=== PATIENT | female | born 1955 | race Caucasian/White ===

== ENCOUNTER 2022-04-24 12:21 | Outpatient (CLI) | payer MEDICARE, SELFPAY | END 2022-04-24 12:22 | disposition home or self-care (01) | LOC: NFLDUCREF 04-28 14:24 | PROVIDERS: Visit Provider Nurse Practitioner Family | DX: R30.0 Dysuria (principal); R35.0 Frequency of micturition | CPT/HCPCS: 87086; 87186 ==

== ENCOUNTER 2024-09-05 12:21 | Outpatient (CLI) | payer MEDICARE, SELFPAY | END 2024-09-05 12:22 | disposition home or self-care (01) | PROVIDERS: PCP Family Medicine; Referring Provider Family Medicine; Visit Provider Nurse Practitioner Family | DX: N30.00 Acute cystitis without hematuria (principal); B96.20 Unspecified Escherichia coli [E. coli] as the cause of diseases classified elsewhere | CPT/HCPCS: 87086 ==

== ENCOUNTER 2024-10-30 12:26 | Outpatient (CLI) | payer MEDICARE, SELFPAY | END 2024-10-30 12:27 | disposition home or self-care (01) | LOC: NFLDREF 11-02 07:59 | PROVIDERS: PCP Family Medicine; Referring Provider Family Medicine; Visit Provider Family Medicine | DX: N30.00 Acute cystitis without hematuria (principal); B96.20 Unspecified Escherichia coli [E. coli] as the cause of diseases classified elsewhere; M17.0 Bilateral primary osteoarthritis of knee; Z51.89 Encounter for other specified aftercare | CPT/HCPCS: 87086 ==

== ENCOUNTER 2024-11-11 14:34 | Outpatient (CLI) | payer MEDICARE, SELFPAY | END 2024-11-11 14:35 | disposition home or self-care (01) | LOC: INJ CL 14:35 | PROVIDERS: PCP Family Medicine; Visit Provider Family Medicine | DX: M17.12 Unilateral primary osteoarthritis, left knee (principal); M25.562 Pain in left knee | CPT/HCPCS: 64454 ==

== ENCOUNTER 2024-11-25 13:15 | Outpatient (CLI) | payer MEDICARE, SELFPAY | END 2024-11-25 13:16 | disposition home or self-care (01) | LOC: INJ CL 13:16 | PROVIDERS: PCP Family Medicine; Visit Provider Family Medicine | DX: M17.12 Unilateral primary osteoarthritis, left knee (principal); M25.562 Pain in left knee; G89.29 Other chronic pain | CPT/HCPCS: 64624; J2250; J3010 ==

== ENCOUNTER 2025-01-15 14:00 | Outpatient (RCR) | payer MEDICARE, SELFPAY | END 2025-05-15 23:59 | disposition home or self-care (01) | PROVIDERS: PCP Family Medicine; Referring Provider Family Medicine; Visit Provider Orthopaedic Surgery Sports Medicine | DX: M17.0 Bilateral primary osteoarthritis of knee (principal); M76.892 Other specified enthesopathies of left lower limb, excluding foot; M25.562 Pain in left knee; G89.29 Other chronic pain; Z96.652 Presence of left artificial knee joint; Z51.89 Encounter for other specified aftercare | CPT/HCPCS: 97110; 97112; 97116; 97140; 97161; 97164; 97530 ==

== ENCOUNTER 2025-02-02 06:03 | Day surgery (SDC) | payer MEDICARE, SELFPAY ==
[2025-02-02] VITALS (22 sets, daily range): BP systolic 105–146; BP diastolic 64–100; PULSE 48–71; RESP 12–20; TEMP 35.8–37.6; O2SAT 94–100; BMI 24.6
[2025-02-02] MEDS: LACTATED RINGERS 1000 ML 1,000 ML 100 ML IV ×2 (06:10→09:39)
[2025-02-02] MEDS: OXYCODONE (CR) 10 MG TAB.ER.12H PO (06:35)
[2025-02-02] MEDS: ACETAMINOPHEN 500 MG TABLET 1000 MG PO (06:35)
[2025-02-02] MEDS: SODIUM CHLORIDE 0.9 % (FLUSH) 10 ML SYRINGE IVF (06:36)
--- NOTE | 2025-02-02 06:50 | W.PM.H&PU ---
History & Physical Update History & Physical Update H&P Reviewed and patient assessed: No changes noted
--- NOTE | 2025-02-02 07:14 | SUR.PREOP ---
TIME?OUT:?0715 PT/RN/MDA?VERIFICATION?OF?SURGICAL?SITE,?PROCEDURE,?AND?CONSENT OBTAINED?PRIOR?TO?INVASIVE?PROCEDURE. all in agreement
[2025-02-02] MEDS: MIDAZOLAM HCL 1 MG/ML inj IVP (07:17)
--- NOTE | 2025-02-02 07:34 | P.NB_ITS ---
Nerve Block Nerve Block Time Seen by Provider: 07:20 Date Seen: 02/02/25 Type of block requested by surgeon for post-operative analgesia: adductor canal Side: left Time out performed: Yes Verification of patient name: Yes Verification of date of : Yes Site marking: site marked Name of person performing procedure: Jordan Pedrito Continuous monitoring Was continuous monitoring of O2 sat, B/P, youth nutritional monitor, recorded every 15 minutes?: Yes Procedure Checklist: sterile prep, needles and gloves Ultrasound guided. Images saved: Yes Medications given in 5ml increments after negative aspiration: Ropivicaine %: 0.5 mL: 30 Needle gauge: 20 Precedex (mcg): 25 Patient tolerated procedure well: Yes Additional comments: Injected in 5mL increments after negative aspiration Block Charges Block Charge (with Pro Fee): Femoral Nerve Use of Ultrasound Machine for Block: Yes- US Guidance/pain block
[2025-02-02] MEDS: TRANEXAMIC ACID 100 MG/ML INJ 1000 MG IV (08:06)
--- NOTE | 2025-02-02 09:48 | P.ANES_ITS ---
Anesthesia Charges Start Date/Time Anesthesia Start Date: 02/02/25 Anesthesia Start Time: 07:54 Stop Date/Time Anesthesia Stop Date: 02/02/25 Anesthesia Stop Time: 09:47 Summary Extremes of Age - Over 70 or under 1: CHEF MANAGER Coding CPT Codes CPT Codes: ANESTH KNEE ARTHROPLASTY - 81269 ([id number]) P2 - PATIENT W/MILD SYST DISEASE, QZ - CHEF MANAGER SVC W/O OPERATOR HELPER BY Additional Codes: Summary - Extremes of Age - Over 70 or under 1: CHEF MANAGER ([id number])
--- NOTE | 2025-02-02 09:48 | W.ANESCHARGE ---
Anesthesia Charges Start Date/Time Anesthesia Start Date: 02/02/25 Anesthesia Start Time: 07:54 Stop Date/Time Anesthesia Stop Date: 02/02/25 Anesthesia Stop Time: 09:47 Summary Extremes of Age - Over 70 or under 1: OCEAN EXPORT COORDINATOR Coding CPT Codes CPT Codes: ANESTH KNEE ARTHROPLASTY - 80253 ([id number]) P2 - PATIENT W/MILD SYST DISEASE, QZ - OCEAN EXPORT COORDINATOR SVC W/O CUTTING ROOM SUPERVISOR BY Additional Codes: Summary - Extremes of Age - Over 70 or under 1: OCEAN EXPORT COORDINATOR ([id number])
--- NOTE | 2025-02-02 09:51 | CRLHL7_ITS ---
For Patients: As a result of the Cures Act, medical imaging exams and procedure reports are released immediately into your electronic medical record. You may view this report before your referring provider. If you have questions, please contact your health care provider. INDICATION: Follow-up a left knee arthroplasty. TECHNIQUE: Two portable postoperative images of the left knee. FINDINGS: Left total knee arthroplasty. Patellar resurfacing. The components are adequately aligned and well seated. Air within the soft tissues and joint space related to the surgery. IMPRESSION: Adequate alignment status post left total knee arthroplasty. Dictated by Tyron Ruiz MD @ 02/04/2025 11:15:25 AM (Electronically Signed)
--- NOTE | 2025-02-02 09:58 | SUR.PHASEI ---
Patient arrived in PACU with no discomfort or nausea. She is able to move her feet and states that the sensation feels normal to her at this time. Pedal pulses strong bilaterally.
--- NOTE | 2025-02-02 10:14 | SUR.PHASEI ---
Patient awake and comfortable, she meets discharge criteria from PACU.
--- NOTE | 2025-02-02 12:45 | SUR.PHASEII ---
patient up from bed to use bathroom. Stood at bedside and had no control of bladder. Emptied most of bladder onto floor and then did sit on commode to empty rest of bladder. No dizziness noted when up. Patient transferred to recliner.
[2025-02-02] MEDS: ACETAMINOPHEN 325 MG TABLET PO (13:15)
--- NOTE | 2025-02-02 13:30 | SUR.PHASEII ---
Pt at physical therapy. Tolerated oatmeal and pears, Reports minimal discomfort- Tylenol given for pain before therapy.
--- NOTE | 2025-02-03 12:39 | P.ORPRC_ITS ---
Procedure Note Date of procedure: 02/02/25 Procedure: PREOPERATIVE DIAGNOSIS: 1. Left knee osteoarthritis, primary, severe POSTOPERATIVE DIAGNOSIS: 1. Left knee osteoarthritis, primary, severe PROCEDURE: 1. Left total knee arthroplasty - subvastus SURGEON: Raul Gomez MD. FAMILY SERVICE CASEWORKER: JENI Tamayo - Of note, a skilled surgeon's assistant was critical for this case to aid in patient positioning, tissue retraction, limb manipulation/positioning, and closure. ANESTHESIA: Spinal anesthetic EBL: 50ml IMPLANTS: DePuy J&J all cemented TKA - Attune PS femur size 5 regular Size 5 tibia 5 mm poly spacer 35 mm patella TOURNIQUET: 48 minutes at 250 torr COMPLICATIONS: None evident INDICATIONS: The patient is a pleasant 69-year-old female who has experienced severe left knee pain and difficulty bearing weight. Workup included x-rays which revealed severe osteoarthrosis in the knee. Given the deformity, the dysfunction, and the pain, as well as the failure of nonoperative management, recommendation was made for surgery. FINDINGS: Full-thickness chondral loss diffusely throughout the medial and to a lesser degree patellofemoral and lateral compartments. Degenerative meniscus pathology medial greater than lateral. Large effusion upon entering the joint. Moderate size osteophytosis diffusely throughout the knee including posterior compartment. DESCRIPTION OF PROCEDURE: Following a thorough discussion of risks, benefits, and alternatives consent was obtained and the left knee was marked. The patient was brought to the operating room and placed supine on the operating table. Induction of anesthesia was undertaken. 1 g IV Ancef and 1 g tranexamic acid was administered within 1 hr of incision preoperatively. Proper time-out was performed identifying proper patient, site, procedure. The operative extremity was prepped and draped in the appropriate sterile fashion using ChloraPrep after the patient was positioned supine with all bony prominences well padded. A longitudinal, anterior, midline skin incision was made starting approximately 3cm proximal to the superior pole of the patella and advanced distal to the tibial tubercle. A subvastus approach was utilized. A medial subperiosteal sleeve was created with knife, weber elevator and curved osteotome. The retropatellar fatpad was resected and the synovium in the suprapatellar pouch excised to visualize the anterior femoral cortex. Femoral preparation was performed via an intramedullary guide. Step drill allowed access into the femoral canal. The distal cutting guide was placed with 5? of valgus and 10 mm cut on the distal femur. Femur was sized using a posterior referencing guide in 3? of external rotation (but the jig was moved anterior 1.5 mm). This found have a best fit with the sizing noted above. The 4 in 1 cutting block was then placed, and the distal femur shaped accordingly. The box cut was then created and the trial implant inserted to confirm appropriate fit. We turned our attention to the proximal tibia. Extramedullary guide was utilized for cutting with the goal of being 90 degree cut from the mechanical axis of the tibia in the varus/valgus plane utilizing tibial crest as the primary alignment. Initially a 2 mm resection was performed from the medial tibial plateau. Ultimately, balancing was achieved in both flexion and extension in both varus and valgus. The knee was able to achieve full extension as well comfortably. The patella was initially measured and found have a thickness of 22 mm. It was resected back to approximately 14 mm. It was sized to be a best fit with as noted above. This was drilled, trial placed. All trials were placed and found to have an excellent stability and balance. At this stage, trial implants were removed, the knee was thoroughly irrigated wi th normal saline, and the cement was mixed. After irrigation, the knee was thoroughly dried, and cement placed, with the real tibial and femoral implants placed along with the patella. Trial poly spacer was placed and confirmed to have excellent range of motion and full extension, and the real poly spacer opened and inserted. All extra cement was removed, and a 3 min Betadine soak performed. Finally, a final irrigation round with normal saline was performed. Closure performed with 0 PDS and #0 Stratafix for the quad tendon/retinaculum. 2-0 Vicryl/Stratafix for the subcutaneous and 4-0 Monocryl for subcuticular closure. Dressings were applied and the patient was awoken from anesthesia after the tourniquet deflated and transferred the PACU in stable condition. A skilled surgeon's assistant was critical for this case to aid in patient positioning, tissue retraction, bone exposure, limb manipulation/positioning, patient safety, and closure. PLAN: 1. Weight bear as tolerated operative extremity. 2. 23 hr perioperative antibiotics. 3. Ice. 4. PT/OT consults for ambulation assistance/mobility education. 5. Social work consult for discharge planning. 6. DVT prophylaxis with at SCDs and aspirin twice daily.
== END 2025-02-02 14:15 | disposition home or self-care (01) ==
LOC: OR 06:05
PROVIDERS: PCP Family Medicine; Visit Provider Orthopaedic Surgery Sports Medicine
PROC: (CPT 27447; principal; 2025-02-02 07:45)
DX: M17.12 Unilateral primary osteoarthritis, left knee (principal); G89.18 Other acute postprocedural pain; E78.5 Hyperlipidemia, unspecified; F41.9 Anxiety disorder, unspecified; F32.A Depression, unspecified; G47.33 Obstructive sleep apnea (adult) (pediatric); I10 Essential (primary) hypertension
CPT/HCPCS: 27447; 01402; 64447; 73560; 76942; 97110; 97116; 97161; 99100; A9270; C1776; J0690; J1100; J2250; J2405; J2704; J2795; J3010; J7120

== ENCOUNTER 2025-02-16 18:58 | Outpatient (CLI) | payer MEDICARE, SELFPAY | END 2025-02-16 18:59 | disposition home or self-care (01) | LOC: NFLDREF 02-19 12:32 | PROVIDERS: PCP Family Medicine; Referring Provider Family Medicine; Visit Provider Physician Assistant Surgical | DX: R30.0 Dysuria (principal); N39.0 Urinary tract infection, site not specified | CPT/HCPCS: 87086 ==

== ENCOUNTER 2025-04-03 10:15 | Outpatient (RCR) | payer MEDICARE, SELFPAY | END 2025-04-29 07:44 | disposition home or self-care (01) | PROVIDERS: PCP Family Medicine; Visit Provider Orthopaedic Surgery Sports Medicine | DX: Z47.1 Aftercare following joint replacement surgery (principal); M17.12 Unilateral primary osteoarthritis, left knee; Z96.652 Presence of left artificial knee joint; M25.562 Pain in left knee; Z51.89 Encounter for other specified aftercare | CPT/HCPCS: 87086; 97110; 97112; 97140; 97161; 97535 ==

== ENCOUNTER 2025-04-15 14:42 | Outpatient (CLI) | payer MEDICARE, SELFPAY | END 2025-04-15 14:43 | disposition home or self-care (01) | LOC: NFLDREF 04-20 08:10 | PROVIDERS: PCP Family Medicine; Referring Provider Family Medicine | DX: N39.0 Urinary tract infection, site not specified (principal) | CPT/HCPCS: 87086 ==

== ENCOUNTER 2025-05-06 15:01 | Outpatient (CLI) | payer MEDICARE, SELFPAY | END 2025-05-06 15:02 | disposition home or self-care (01) | LOC: NFLDREF 05-07 19:58 | PROVIDERS: PCP Family Medicine; Referring Provider Family Medicine | DX: N30.00 Acute cystitis without hematuria (principal) | CPT/HCPCS: 87086 ==

== ENCOUNTER 2025-06-08 19:23 | Outpatient (CLI) | payer MEDICARE, SELFPAY | END 2025-06-08 19:24 | disposition home or self-care (01) | LOC: NFLDREF 06-10 14:02 | PROVIDERS: PCP Family Medicine; Referring Provider Family Medicine; Visit Provider Orthopaedic Surgery Sports Medicine | DX: R30.0 Dysuria (principal) | CPT/HCPCS: 87086 ==